=== PATIENT | female | born 1985 | race Caucasian/White ===

== ENCOUNTER 2019-10-02 15:43 | Inpatient (IN) | payer OTHER ==
[~2019-10-02] VITALS: Ht 162.6 cm; Wt 103.5 kg
[~2019-10-02 15:43] MED LIST: NAPR500 PO
[2019-10-04 18:03] LABS: BASOPHILS ABSOLUTE AUTO 0.06 K/mm3 (0.00-0.23); BASOPHILS PERCENT AUTO 1 % (0-2); EOSINOPHILS PERCENT AUTO 1 % (0-6); Hemoglobin 15.8 g/dL (11.5-16.0); IMMATURE GRAN ABSOLUTE AUTO 0.03 K/mm3 (0.00-0.10); IMMATURE GRAN PERCENT AUTO 0 % (0-1); LYMPHOCYTES ABSOLUTE AUTO 2.57 K/mm3 (0.84-5.20); LYMPHOCYTES PERCENT AUTO 25 % (21-46); MONOCYTES ABSOLUTE AUTO 0.89 K/mm3 (0.16-1.47); MONOCYTES PERCENT AUTO 9 % (4-13); Mean Corpuscular HGB 30.3 pg (26.0-34.0); Mean Corpuscular HGB Conc 32.9 g/dL (31.5-36.5); Mean Corpuscular Volume 92 fL (80-100); Mean Platelet Volume 10.3 fL (9.1-12.4); NEUTROPHILS ABSOLUTE AUTO 6.64 K/mm3 (1.96-9.15); NEUTROPHILS PERCENT AUTO 65 % (41-73); Platelet Count 319 K/mm3 (150-400); RDW Coefficient Variation 11.8 % (11.7-14.2); RDW Standard Deviation 39.8 fL (35.1-46.3); Red Blood Cell Count 5.21 M/mm3 (3.80-5.20); White Blood Cell Count 10.29 K/mm3 (4.00-11.30)
[2019-10-04 18:56] LABS: Anion Gap 6 mmol/L (6-16); Beta HCG, Quantitative, Serum <1 mIU/mL (0-3); Blood Urea Nitrogen 7 mg/dL (8-24); Bun/Creatinine Ratio 10.4 (12.0-20.0); CO2, Blood 26 mmol/L (21-32); Calcium, Blood 8.9 mg/dL (8.5-10.1); Chloride, Blood 105 mmol/L (98-108); Creatinine, Blood 0.68 mg/dL (0.40-1.00); Glomerular Filtration Rate >60 (60-); Glucose, Blood 100 mg/dL (70-99); Potassium, Blood 3.8 mmol/L (3.5-5.5); Sodium, Blood 137 mmol/L (136-145)
--- NOTE | 2019-10-05 06:25 | NUR ---
Ambulatory in Day Surgery History, Chart, Medications and Allergies reviewed before start of procedure.Patient confirms NPO status and agrees with scheduled surgery.
--- NOTE | 2019-10-05 17:07 | NUR ---
SUMMARY NO ACUTE CHANGES SINCE ARRIVING TO UNIT FROM PACU. MEDICATED PER ORDERS FOR PAIN T/O DAY. REPORTS TOLERABLE AT THIS TIME, RATING 4/10. PT ADAMANT ABOUT ADVANCING DIET. DISCUSSED W/DR WONDERLY. ADVANCING SLOWLY TO FULL LIQUIDS TONIGHT. PT REFUSED LOVENOX. CURRENTLY OUTSIDE IN W/FAMILY TO SMOKE.
--- NOTE | 2019-10-05 17:48 | NUR ---
PT BACK TO ROOM AFTER RETURNING TO FLOOR, AMBULATED THROUGH HALLWAYS W/S.O. NOW BACK TO BED W/PAS ON. IV FLUIDS INFUSING AND CALL LIGHT IN REACH. REC'D DINNER TRAY; ADVISED PT TO TAKE PO INTAKE SLOWLY.
--- NOTE | 2019-10-06 01:48 | NUR ---
REPORT GIVEN TO KRISTYN ROMERO. BAN IS RESTING COMFORTABLY. SHE REPORTS THAT SHE HAS PAIN WHEN PASSING FLATUS AND COUGHING. SHE WAS EDUCATED ON SPLINTING AND REPORTS THAT IT IMPROVES HER COMFORT WHEN COUGHING.
[2019-10-06 04:53] LABS: BASOPHILS ABSOLUTE AUTO 0.04 K/mm3 (0.00-0.23); BASOPHILS PERCENT AUTO 0 % (0-2); EOSINOPHILS PERCENT AUTO 0 % (0-6); Hematocrit 41.7 % (33.0-51.0); IMMATURE GRAN ABSOLUTE AUTO 0.06 K/mm3 (0.00-0.10); IMMATURE GRAN PERCENT AUTO 0 % (0-1); LYMPHOCYTES ABSOLUTE AUTO 2.02 K/mm3 (0.84-5.20); LYMPHOCYTES PERCENT AUTO 13 % (21-46); MONOCYTES ABSOLUTE AUTO 1.65 K/mm3 (0.16-1.47); MONOCYTES PERCENT AUTO 11 % (4-13); Mean Corpuscular HGB 31.1 pg (26.0-34.0); Mean Corpuscular HGB Conc 33.6 g/dL (31.5-36.5); Mean Corpuscular Volume 93 fL (80-100); Mean Platelet Volume 10.7 fL (9.1-12.4); NEUTROPHILS ABSOLUTE AUTO 11.86 K/mm3 (1.96-9.15); NEUTROPHILS PERCENT AUTO 76 % (41-73); Platelet Count 302 K/mm3 (150-400); RDW Coefficient Variation 11.8 % (11.7-14.2); RDW Standard Deviation 40.2 fL (35.1-46.3); White Blood Cell Count 15.63 K/mm3 (4.00-11.30)
--- NOTE | 2019-10-06 06:46 | NUR ---
PINEDO CATH REMOVED WITHOUT ISSUE. IV SL THIS AM. PATIENT IS HAVING INCREASED PAIN WITH COUGHING. MIDLINE ABDOMINAL ASHER DRESSING IN COMPRESSED AND CLEAN AND DRY. NO VAGINAL DRAINAGE.
[2019-10-06] MEDS ORDERED: DOCU100 PO (12:52)
[2019-10-06] MEDS ORDERED: IBUP800 PO (12:53)
[2019-10-06] MEDS ORDERED: Milk Of Ma400 MG/5 M PO (12:54)
[2019-10-06] MEDS ORDERED: Percocet 5-3251 EACH PO (12:54)
[2019-10-06] MEDS ORDERED: PROM25 PO (12:55)
[2019-10-06] MEDS ORDERED: SIME80CH PO (12:56)
[2019-10-06] MEDS ORDERED: SENN187 PO (12:56)
--- NOTE | 2019-10-06 13:27 | NUR ---
DISCHARGE PT EDUCATED ON AND RECEIVED PRINTED DC INSTRUCTIONS AND VERBALIZED AN UNDERSTANDING. HARD RX FOR PERCOCET, IBUPROFEN, AND PHENERGAN GIVEN TO PT. IV DC'D. PT GATHERED ALL PERSONAL BELONGINGS AND ESCORTED OUT VIA W/C BY .
--- NOTE | 2019-10-08 07:35 | NUR ---
10/08/19 0735 Abimbola May VERIFICATIONS: EDIT CHART.
== END 2019-10-06 13:29 | disposition home or self-care (01) | DRG 743 ==
LOC: SURS 10-05 05:54 → PRE IP 10-05 07:30 → SURS 10-05 10:33
PROVIDERS: ADMIT Obstetrics & Gynecology
PROC: 0UB00ZZ Excision of Right Ovary, Open Approach (ICD-10-PCS; principal; 2019-10-05 07:30)
DX: N83.201 Unspecified ovarian cyst, right side (principal); F17.200 Nicotine dependence, unspecified, uncomplicated
CPT/HCPCS: 36415; 80048; 84702; 85025; 86850; 86900; 86901; 88305; J0690; J1100; J1885; J2250; J2405; J2704; J3010; J7120

== ENCOUNTER 2019-11-18 01:09 | Emergency (ER) | payer OTHER ==
[~2019-11-18] VITALS: Ht 162.6 cm; Wt 95.2 kg
[~2019-11-18 01:09] MED LIST changes: +DOCU100 PO; +IBUP800 PO; +Milk Of Ma400 MG/5 M PO; +PROM25 PO; +Percocet 5-3251 EACH PO; +SENN187 PO; +SIME80CH PO
[2019-11-18] MEDS ORDERED: LIDO700A20 TOP (03:22)
[2019-11-18] MEDS ORDERED: CYCL10 PO (03:22)
== END 2019-11-18 04:38 | disposition home or self-care (01) ==
LOC: ER 01:09
DX: M54.42 Lumbago with sciatica, left side (principal); F17.200 Nicotine dependence, unspecified, uncomplicated
CPT/HCPCS: 96372; 99283-25; J1200; J1630; J1885

== ENCOUNTER → 2021-06-17 | Outpatient (CLI) | payer OTHER ==
[~2021-06-17] MED LIST changes: +CYCL10 PO; +LIDO700A20 TOP
== END | disposition home or self-care (01) ==
LOC: LAB SHORT 19:29 → LAB 19:29
DX: N39.0 Urinary tract infection, site not specified (principal)
CPT/HCPCS: 87077; 87086; 87186